=== PATIENT | female | born 1945 | race Caucasian/White ===

== ENCOUNTER 2023-01-09 19:28 | Emergency (ER) | payer MEDICARE, SELFPAY ==
[2023-01-09 19:31] VITALS: BP 199/75; PULSE 71; RESP 18; TEMP 36.6; O2SAT 95; BMI 32.4
--- NOTE | 2023-01-09 20:00 | PC.NURSE ---
pt's daughter states pt has a hx of UTIs and is having the same symptoms, of fatigue and confusion pt is incontinent
--- NOTE | 2023-01-09 20:08 | ED.FEMALEGU ---
HPI - Female Genitourinary General Chief complaint: Urogenital-Female Stated complaint: UTI Time Seen by Provider: 01/09/23 19:56 Source: patient and family Mode of arrival: Wheelchair History of Present Illness HPI Narrative: 77-year-old female nonsmoker with history of hypertension (has not had her medications yet tonight presents with daughter and a chief complaint of concern for UTI. She is had some minimal confusion that is not necessarily different than her baseline and primary complaint is of urinary frequency and urgency. She denies any abdominal pain or back pain she has no fever or chills. She is otherwise well and free of complaint. There is no chest pain, shortness of breath or cough. She has no nausea, vomiting or diarrhea. Related Data Previous Rx's Medication Instructions Recorded cephalexin 500 mg capsule 500 mg PO Q6H 7 days #28 caps 01/09/23 Allergies Allergy/AdvReac Type Severity Reaction Status Date / Time Iodinated Contrast Media Allergy Hives Verified 01/09/23 19:40 latex Allergy Verified 01/09/23 19:39 pseudoephedrine Allergy Rash Verified 01/09/23 19:40 [From [facility]] Review of Systems Review of Systems Narrative: GENERAL: Denies chills, fatigue, malaise, fever, sweats. HEENT: Denies sinus pain, ear pain, sore throat, difficulty swallowing, dizziness. RESPIRATORY: Denies dyspnea, cough, wheezing, hemoptysis, sputum. CARDIOVASCULAR: Denies chest pain, palpitations, orthopnea, edema, GASTROINTESTINAL: Denies nausea, vomiting, abdominal pain, diarrhea, constipation, melena. : See HPI MUSCULOSKELETAL: denies weakness, joint pain, or bony pain SKIN: Denies rash, skin lesions, or other NEUROLOGIC: Denies weakness, headache, numbness, change in speech, confusion, seizures, incoordination. PSYCHIATRIC: No concerning psychosocial issues. 12 point review of systems is negative except for those stated above Patient History Medical History Compression fracture Diabetes Gout High blood pressure High cholesterol UTI (urinary tract infection) Substance Use Type: does not use Exam Narrative Exam Narrative: GEN: AOx3 and in mild distress, pleasantly confused, at baseline per daughter who is at the bedside EYES: Pupils are equal, round, and reactive to light and accommodation. Extraoccular muscles are intact bilaterally. There is no subconjunctival hemorrhage or exudate. CHEST: Lungs are clear to auscultation bilaterally and free of wheezes, rales, or rhonchi. Heart rate is regular rhythm, there are no murmurs, clicks, rubs, or gallops. There is no chest wall tenderness. ABD: Abdomen is soft and nontender. There is no guarding or rebound. Bowel sounds are normal in all 4 quadrants. There is no mass or organomegaly. EXT: Full painless ROM of all extremities with no loss of sensation or strength. SKIN: Warm, pink, and dry. No erythema or rash Initial Vital Signs Initial Vital Signs: Vital Signs Temperature 97.8 F 01/09/23 19:31 Pulse Rate 71 01/09/23 19:31 Respiratory Rate 18 01/09/23 19:31 Blood Pressure 199/75 H 01/09/23 19:31 Pulse Oximetry 95 01/09/23 19:31 Oxygen Delivery Method Room Air 01/09/23 19:31 Course Orders Ordered: Discontinued Medications Cefazolin Sodium (Cephalexin 250 Mg Cap Prepack) 1 bottle MISC SEEINSTR ONE Stop: 01/09/23 20:46 Last Admin: 01/09/23 20:51 Dose: 2 cap Documented By: HNG Vital Signs Vital signs: Vital Signs - 8 hr 01/09/23 19:31 Temperature 97.8 F Pulse Rate 71 Respiratory Rate 18 Blood Pressure 199/75 H Pulse Oximetry 95 Oxygen Delivery Method Room Air MDM - Female Genitourinary Lab Data Labs: Urine Dip Bedside Urine Glucose Negative Bedside Urine Bilirubin - Negative Bedside Urine Ketone - Negative Urine Specific [place] 1.015 Bedside Urine Occult Blood +++ Bedside Urine pH 6.0 Bedside Urine Protein +/- 15 Bedside Urine Urobilinogen - Negative Bedside Urine Nitrite - Negative Bedside Urine Leukocytes + 70 Esterase MDM Narrative Medical decision making narrative: [77] year old patient presents with urinary complaints Multiple etiologies for patient's symptoms considered including, but not limited to: [UTI versus pyelonephritis versus other] No prior charts available in our EMR Primary Historian: patient and her daughter Labs reviewed and interpreted by myself: Urine consistent with UTI Patient's symptoms improved over duration of stay with above-stated therapies. Findings and discharge diagnosis discussed with patient/family followed by verbalization of understanding Return precautions discussed with patient/family whom verbalize understanding of diagnosis and plan Discharge Plan Departure Patient Disposition: Home Clinical Impression: Urinary tract infection Instructions: DI for Urinary Tract Infection (UTI) Activity Restrictions/Additional Instructions: *You have been diagnosed with [urinary tract infection] *What to do: *Please continue to take your regular medications as directed. [x ] New medication prescriptions sent to your pharmacy: [ [facility]] [ ] New medication written as a paper prescription [ ] No new medications given *Please follow up with your primary care provider in 2-3 days, call for an appointment. Let them know you were seen in the Emergency Department and that we ask that you be seen in follow up. We will electronically transmit a record of today's note if your PCP is in our system *Return to Emergency Department if you should have any new, worsening or concerning symptoms, such as [fever greater than 101 F, shaking chills, worsening pain, persistent vomiting or other bothersome symptoms] Prescriptions: New cephalexin 500 mg capsule 500 mg PO Q6H 7 Days Qty: 28 0RF Stand Alone Forms: Patient Portal/API
[2023-01-09] MEDS: cephALEXin 250 MG CAP PREPACK 1 BOTTLE MISC (20:51)
[2023-01-09 20:56] VITALS: BP 204/84; PULSE 67; RESP 16; O2SAT 97
== END 2023-01-09 21:03 | disposition home or self-care (01) ==
PROVIDERS: Emergency Provider Emergency Medicine
DX: N39.0 Urinary tract infection, site not specified (principal)
CPT/HCPCS: 81003; 99282

== ENCOUNTER 2023-01-13 18:48 | Observation (INO) | payer MEDICARE, SELFPAY ==
[2023-01-13 18:52] VITALS: BP 213/85; PULSE 63; RESP 19; TEMP 36.7; O2SAT 96; BMI 30.1
--- NOTE | 2023-01-13 19:00 | PC.NURSE ---
pt was dx with a UTI on 02/08 has been taking medication without improvement
[2023-01-13 19:55] LABS: Bacteria Urine Few (2-10); Culture Indicated Urine Specimen Cultured; RBC Urine None Seen (0-5/HPF); Squamous Epithelial Cell Urine 5-10 /HPF (0-5/HPF); WBC Urine 10-30/HPF (0-5/HPF)
--- NOTE | 2023-01-13 21:15 | ED.FEMALEGU ---
HPI - Female Genitourinary General Chief complaint: Urogenital-Female Stated complaint: was here for uti/not getting better Time Seen by Provider: 01/13/23 21:11 Source: patient and family Mode of arrival: Wheelchair History of Present Illness HPI Narrative: Patient is a 77-year-old female who has history of hypertension, hyperlipidemia, frequent UTIs on Mthenamine hippurate presenting today with UTI. She was actually seen evaluated here on the she had POC dip which was positive for leuks started on Keflex. She is been on Keflex for the last 4 days she has overall not had any improvement. Unfortunately urine culture and sensitivity was not sent due to insufficient urine. She is staying with a daughter who reports that she is extra tired fatigued. No real fever she is not having pain. She is get around by wheelchair. Related Data Home Medications Medication Instructions Recorded Confirmed allopurinol 100 mg tablet 100 mg PO DAILY 01/13/23 01/13/23 aspirin 81 mg capsule 81 mg PO DAILY 01/13/23 01/13/23 atorvastatin 40 mg tablet 40 mg PO DAILY 01/13/23 01/13/23 calcitonin (salmon) 200 1 spray intranasal (ALT) DAILY 01/13/23 01/13/23 unit/actuation nasal spray carvedilol 12.5 mg tablet 12.5 mg PO BID 01/13/23 01/13/23 escitalopram oxalate 5 mg tablet 2.5 mg PO DAILY 01/13/23 01/13/23 estradiol 0.01% (0.1 mg/gram) 1 appful vaginal 2XW 01/13/23 01/13/23 vaginal cream ferrous gluconate 324 mg (36 mg 324 mg PO 3XW 01/13/23 01/13/23 iron) tablet metformin 500 mg tablet,extended 500 mg PO BID 01/13/23 01/13/23 release 24 hr methenamine hippurate 1 gram tablet 1 g PO BID 01/13/23 01/13/23 tramadol 50 mg tablet 50 mg PO BEDTIME 01/13/23 01/13/23 valsartan 40 mg tablet 80 mg PO DAILY 01/13/23 01/13/23 Previous Rx's Medication Instructions Recorded cephalexin 500 mg capsule 500 mg PO Q6H 7 days #28 caps 01/09/23 Allergies Allergy/AdvReac Type Severity Reaction Status Date / Time Iodinated Contrast Media Allergy Hives Verified 01/13/23 18:52 latex Allergy Verified 01/13/23 18:52 pseudoephedrine Allergy Rash Verified 01/13/23 18:52 [From [facility]] Review of Systems Review of Systems ROS Unobtainable: All systems reviewed & are unremarkable except as noted in HPI and below Patient History Medical History (Updated 01/14/23 @ 02:57 by NANCY Shah-AMARILIS) Compression fracture Diabetes Gout High blood pressure High cholesterol Presence of internal carotid stent UTI (urinary tract infection) Surgical History (Updated 01/14/23 @ 02:57 by NANCY Shah-AMARILIS) History of left hip replacement History of repair of right rotator cuff Pacemaker Family History (Updated 01/14/23 @ 02:58 by NICHOLAS Shah) Other Adopted Substance Use Type: does not use Exam Initial Vital Signs Initial Vital Signs: Vital Signs Temperature 98.1 F 01/13/23 18:52 Pulse Rate 63 01/13/23 18:52 Respiratory Rate 19 01/13/23 18:52 Blood Pressure 213/85 H 01/13/23 18:52 Pulse Oximetry 96 01/13/23 18:52 Oxygen Delivery Method Room Air 01/13/23 18:52 GENERAL: Alert week pleasant 77-year-old female and in no acute distress. HEENT: Head atraumatic,EOMI, pupils reactive, face symmetric, moist mucous membranes CARDIOVASCULAR: Regular rate and rhythm without murmurs, rubs or gallops. RESPIRATORY: Breath sounds equal bilaterally, no wheezes rales or rhonchi. ABDOMEN: Soft, nontender. Normoactive bowel sounds all 4 quadrants. No guarding or rebound. : No CVA tenderness EXTREMITIES: Normal range of motion, no clubbing or edema. Neurovascularly intact NEUROLOGICAL: Alert and oriented x4.Normal gait and speech. SKIN: Warm, dry, no laceration, no petechiae, no rashes or lesions. Course Orders Ordered: ED Orders 01/13/23 19:23 Urine Culture Stat Urine Microscopic Stat 01/13/23 21:23 EKG-12 Lead Stat 01/13/23 21:47 CBC Auto Diff [Complete Blood Count AUTO DIFF] Stat CMP [Comprehensive Metabolic Panel] Stat Lactate (Lactic Acid) Stat Troponin & CK Cardiac Panel Stat 01/13/23 22:08 Blood Culture Stat 01/14/23 00:46 Education, smoking cessation ONGOING 01/14/23 00:55 Consult to Dietitian, Adult Routine Consult to Discharge Planning Routine Consult to Occupational Therapy Evaluate & Treat Consult to Physical Therapy Evaluate & Treat 01/14/23 05:00 Basic Metabolic Panel DAILY Complete Blood Count AUTO DIFF DAILY 01/15/23 05:00 Basic Metabolic Panel DAILY Complete Blood Count AUTO DIFF DAILY Acetaminophen (Acetaminophen 325 Mg Tablet) 650 mg PO Q6H PRN PRN Reason: Fever/Mild Pain (1-3) Last Admin: 01/14/23 02:41 Dose: 650 mg Documented By: KARYN Al Hydrox/Mg Hydrox/Simethicone (Mag Hydrox/Alum/Simeth 30 Ml Udc) 30 ml PO Q6HR PRN PRN Reason: Dyspepsia Allopurinol (Allopurinol 100 Mg Tablet) 100 mg PO DAILY [facility] Aspirin (Aspirin Ec 81 Mg Tablet) 81 mg PO DAILY [facility] Atorvastatin Calcium (Atorvastatin 20 Mg Tablet) 40 mg PO DAILY [facility] Calcium Carbonate (Calcium Carbonate 500 Mg Tab) 1,000 mg PO Q4HR PRN PRN Reason: Dyspepsia Carvedilol (Carvedilol 12.5 Mg Tablet) 12.5 mg PO BID [facility] Dextrose (Dextrose 50 % In Water 25 Gm/50 Ml Syringe) 25 gm IV PRN PRN PRN Reason: Hypoglycemia Enoxaparin Sodium (Enoxaparin 40 Mg/0.4 Ml Syringe) 40 mg SUBCUT DAILY [facility] Escitalopram Oxalate (Escitalopram 10 Mg Tablet) 2.5 mg PO DAILY [facility] Sodium Chloride (Normal Saline 0.9%) 1,000 mls @ 60 mls/hr IV CONT [facility] Last Admin: 01/14/23 02:34 Dose: 60 mls/hr Documented By: KARYN Ceftriaxone Sodium 1,000 mg/ (Sodium Chloride) 100 mls @ 200 mls/hr IV Q24H [facility] Insulin Human Lispro (Insulin Lispro 100 Unit/Ml 3ml Vial) 0 unit SUBCUT ACHS VERONICA; Protocol Naloxone HCl (Naloxone 0.4 Mg/Ml Vial) 0.2 mg IV Q2MIN PRN PRN Reason: Opiate Reversal Ondansetron HCl (Ondansetron 4 Mg Odt) 4 mg PO Q8HR PRN PRN Reason: Nausea And Vomiting Sennosides (Sennosides 8.6 Mg Tablet) 17.2 mg PO BEDTIME VERONICA Tramadol HCl (Tramadol 50 Mg Tablet) 50 mg PO BEDTIME [facility] Valsartan (Valsartan 80 Mg Tablet) 80 mg PO DAILY [facility] Discontinued Medications Sodium Chloride (Normal Saline 0.9%) 1,000 mls @ 1,000 mls/hr IV BOLUS ONE Stop: 01/13/23 22:22 Last Infusion: 01/13/23 23:27 Dose: 0 mls/hr Documented By: Admin: 01/13/23 21:59 Dose: 1,000 mls/hr Documented By: KRISTEN Ceftriaxone Sodium 1,000 mg/ (Sodium Chloride) 100 mls @ 200 mls/hr IV NOW ONE Stop: 01/13/23 21:24 Last Infusion: 01/13/23 23:27 Dose: 0 mls/hr Documented By: Admin: 01/13/23 21:59 Dose: 200 mls/hr Documented By: KRISTEN Ceftriaxone Sodium 1,000 mg/ (Sodium Chloride) 100 mls @ 200 mls/hr IV NOW ONE Stop: 01/14/23 00:53 Last Admin: 01/14/23 02:34 Dose: 200 mls/hr Documented By: KARYN Non-Formulary Medication (Aspirin) 81 mg PO DAILY [facility] Vital Signs Vital signs: Vital Signs - 8 hr 01/13/23 21:38 01/13/23 21:38 01/13/23 22:00 Pulse Rate 69 70 Blood Pressure 198/77 H Pulse Oximetry 92 95 01/13/23 22:30 01/13/23 23:00 01/13/23 23:30 Pulse Rate 67 71 70 Blood Pressure Pulse Oximetry 94 94 93 MDM - Female Genitourinary Lab Data 01/13/23 21:47 01/13/23 21:47 Labs: Lab Results 01/13/23 01/13/23 01/13/23 Range/Units 19:23 21:47 21:47 WBC 8.5 (4.5-11.0) X10^3/uL RBC 3.35 L (4.0-5.2) X10^6/uL Hgb 9.9 L (12.0-16.0) g/dL Hct 29.9 L (36-46) % MCV 89.3 (80-100) fL MCH 29.7 (26-34) PG MCHC 33.2 (30-36) % RDW 14.8 (11.6-14.8) % Plt Count 171 (150-400) X10^3/uL Neut % (Auto) 66.1 (50-75) % Lymph % (Auto) 18.7 L (25-40) % [place] % (Auto) 8.9 (3-14) % Eos % (Auto) 5.1 H (2-4) % Baso % (Auto) 1.2 (0-2) % Neut # (Auto) 5600 (7184-2303) /uL Lymph # (Auto) 1600 (1640-8257) /uL [place] # (Auto) 800 (0-900) /uL Eos # (Auto) 400 (0-450) /uL Baso # (Auto) 100 (0-100) /uL Sodium 136 L (137-145) mmol/L Potassium 4.8 (3.4-5.1) mmol/L Chloride 106 (98-107) mmol/L Carbon Dioxide 25 (22-32) mmol/L BUN 30 H (7-17) mg/dL Creatinine 1.00 (0.52-1.04) mg/dL Estimated GFR 57 L (>60) mL/min BUN/Creatinine Ratio 30.0 H (6-22) Glucose 115 H (80-110) mg/dL Lactate (0.7-2.1) mmol/L Calcium 8.8 (8.4-10.2) mg/dL Total Bilirubin 0.5 (0.2-1.3) mg/dL AST 25 (14-36) IU/L ALT 22 (<35) IU/L Alkaline Phosphatase 89 (38-126) U/L Total Creatine Kinase 28 L (30-135) U/L Troponin I < 0.012 (0.01-0.034) ng/mL Total Protein 6.8 (6.3-8.2) g/dL Albumin 3.5 (3.5-5.0) g/dL Globulin 3.3 (1.7-4.1) g/dL Albumin/Globulin Ratio 1.1 (1.0-2.8) Urine RBC None seen (0-5/HPF) Urine WBC 10-30/hpf H (0-5/HPF) Ur Squamous Epith Cells 5-10 /hpf H (0-5/HPF) Urine Bacteria Few (2-10) H (None) Urine Yeast 1-5/hpf H (None) Ur Culture Indicated? Specimen cultured 01/13/23 Range/Units 21:47 WBC (4.5-11.0) X10^3/uL RBC (4.0-5.2) X10^6/uL Hgb (12.0-16.0) g/dL Hct (36-46) % MCV (80-100) fL MCH (26-34) PG MCHC (30-36) % RDW (11.6-14.8) % Plt Count (150-400) X10^3/uL Neut % (Auto) (50-75) % Lymph % (Auto) (25-40) % [place] % (Auto) (3-14) % Eos % (Auto) (2-4) % Baso % (Auto) (0-2) % Neut # (Auto) (5461-2929) /uL Lymph # (Auto) (7783-7944) /uL [place] # (Auto) (0-900) /uL Eos # (Auto) (0-450) /uL Baso # (Auto) (0-100) /uL Sodium (137-145) mmol/L Potassium (3.4-5.1) mmol/L Chloride (98-107) mmol/L Carbon Dioxide (22-32) mmol/L BUN (7-17) mg/dL Creatinine (0.52-1.04) mg/dL Estimated GFR (>60) mL/min BUN/Creatinine Ratio (6-22) Glucose (80-110) mg/dL Lactate 0.9 (0.7-2.1) mmol/L Calcium (8.4-10.2) mg/dL Total Bilirubin (0.2-1.3) mg/dL AST (14-36) IU/L ALT (<35) IU/L Alkaline Phosphatase (38-126) U/L Total Creatine Kinase (30-135) U/L Troponin I (0.01-0.034) ng/mL Total Protein (6.3-8.2) g/dL Albumin (3.5-5.0) g/dL Globulin (1.7-4.1) g/dL Albumin/Globulin Ratio (1.0-2.8) Urine RBC (0-5/HPF) Urine WBC (0-5/HPF) Ur Squamous Epith Cells (0-5/HPF) Urine Bacteria (None) Urine Yeast (None) Ur Culture Indicated? Urine Dip Bedside Urine Glucose Negative Bedside Urine Bilirubin - Negative Bedside Urine Ketone - Negative Urine Specific [place] 1.020 Bedside Urine Occult Blood - Negative Bedside Urine pH 6.0 Bedside Urine Protein +/- 15 Bedside Urine Urobilinogen - Negative Bedside Urine Nitrite - Negative Bedside Urine Leukocytes ++ 125 Esterase ECG Data Interpretation: Sinus rhythm rate 69 ND interval day to QRS 154 QTC 490 paced rhythm no Sgarbossa criteria MDM Narrative Medical decision making narrative: Patient is 77-year-old female with frequent UTIs unknown sensitivity but I suspect she has drug resistance. She is frequently seen at [facility] in [place]. Has failed outpatient treatment on Keflex. Unfortunately culture and sensitivity was not done few days ago. She is not septic at this time. She continues to be weak. She is given 1 dose of Rocephin in the ED. She is afebrile without leukocytosis elevated lactate or procalcitonin Gabriella accepts patient [place] records have been requested Discharge Plan Departure Patient Disposition: Admitted As Inpatient Clinical Impression: Urinary tract infection Admit Date/Time: 01/14/23 01:24 Admit Provider: Gabriella Gonzalez
[2023-01-13 21:38] VITALS: BP 198/77; PULSE 69; O2SAT 92
[2023-01-13] MEDS: SODIUM CHLORIDE 0.9% 1,000 ML 1000 ML IV (21:59)
[2023-01-13] MEDS: cefTRIAXone 1,000 MG in SODIUM CHLORIDE 0.9% 100 ML 200 MG IV (21:59)
[2023-01-13 22:00] VITALS: PULSE 70; O2SAT 95
[2023-01-13 22:01] LABS: Add Manual Diff / Slide Review NO; Basophils Absolute Auto 100 /uL (0-100); Basophils Percent Auto 1.2 % (0-2); Eosinophils Absolute Auto 400 /uL (0-450); Eosinophils Percent Auto 5.1 % (2-4); Hematocrit 29.9 % (36-46); Hemoglobin 9.9 g/dL (12.0-16.0); Lymphocytes Absolute Auto 1600 /uL (1100-4500); Lymphocytes Percent Auto 18.7 % (25-40); Mean Corpuscular HGB Conc 33.2 % (30-36); Mean Corpuscular Hemoglobin 29.7 PG (26-34); Mean Corpuscular Volume 89.3 fL (80-100); Monocytes Absolute Auto 800 /uL (0-900); Monocytes Percent Auto 8.9 % (3-14); Neutrophils Absolute Auto 5600 /uL (1500-7000); Neutrophils Percent Auto 66.1 % (50-75); Platelet Count 171 X10^3/uL (150-400); Red Blood Cell Count 3.35 X10^6/uL (4.0-5.2); Red Cell Distribution Width 14.8 % (11.6-14.8); White Blood Cell Count 8.5 X10^3/uL (4.5-11.0)
[2023-01-13 22:15] LABS: Alanine Aminotransferase 22 IU/L (<35); Albumin 3.5 g/dL (3.5-5.0); Albumin Globulin Ratio 1.1 (1.0-2.8); Alkaline Phosphatase 89 U/L (38-126); Aspartate Aminotransferase 25 IU/L (14-36); Bilirubin Total 0.5 mg/dL (0.2-1.3); Blood Urea Nitrogen 30 mg/dL (7-17); Calcium 8.8 mg/dL (8.4-10.2); Carbon Dioxide 25 mmol/L (22-32); Chloride 106 mmol/L (98-107); Creatine Kinase 28 U/L (30-135); Estimated Glomerular Filt Rate 57 mL/min (>60); Globulin 3.3 g/dL (1.7-4.1); Glucose 115 mg/dL (80-110); HEMOLYSIS < 15 (0-50); Potassium 4.8 mmol/L (3.4-5.1); Sodium 136 mmol/L (137-145); Total Protein 6.8 g/dL (6.3-8.2)
[2023-01-13 22:26] LABS: Troponin I < 0.012 ng/mL (0.01-0.034)
[2023-01-13 22:30] VITALS: PULSE 67; O2SAT 94
[2023-01-13 22:38] LABS: Lactate (Lactic Acid) 0.9 mmol/L (0.7-2.1)
[2023-01-13 23:00] VITALS: PULSE 71; O2SAT 94
[2023-01-13 23:30] VITALS: PULSE 70; O2SAT 93
--- NOTE | 2023-01-14 01:00 | P.HP_ITS ---
History of Present Illness History of Present Illness Date Patient Seen: 01/14/23 Time Patient Seen: 01:00 Chief complaint: was here for uti/not getting better Narrative: Yakov Stephenson is a 77-year-old female who has history of hypertension,pacemaker, hyperlipidemia, gout, NIDDM, renal carcinoma, frequent UTIs on Mthenamine hippurate presenting today with UTI.? Patient's daughter reports that approximately 1 month ago patient had a UTI was put on Keflex followed by a dose of fosfomycin, completed those antibiotics approximately 1 week ago. She is staying with her other daughter here in [place] was seen here in ED on 01/09 she had POC dip which was positive for leuks started on Keflex.? She has been on Keflex for the last 4 days, worsening s/s increased fatigue, sleeping 10 hours or more a day, increasing balance & coordination problems, and slight altered mental status (perdaughter) high-risk for falls, failed outpatient management. Unfortunately urine culture and sensitivity was not sent due to insufficient urine. Patient lives in [facility], PCP Dr. Evelio Allen in [place]. patient had a significant fall 3 months ago resu lting in a L5-S1 compression fractures, fell while going to the restroom within the last week suffered bruising to left yarsanism. Patient is at increasing risk for severe life-threatening injury.?She is get around by wheelchair.? Patient presented to ED with hypertensive urgency 213/85. Was given 1 L of fluid with 1 g of Rocephin in ED. On admit patient complains of a productive cough related to seasonal allergies, frequent urinary incontinence possible retention, urgency and frequency. Patie nt also notes that she was recently diagnosed with Right renal carcinoma- Oncology Dr. Amada Allen, they have not started treatment yet. Denies chest pain, shortness in breath, headache, changes in vision, difficulty swallowing, speech impairment, numbness, tingling, recent falls, head injury, LOC, fever, body aches, chills, cough, recent exposure to illness, abdominal pain, nausea, vomiting, hematuria, bowel changes, constipation, incontinence, melena, rashes, recent changes to medication, illness, injury, or trauma. The time of admit 98.1? afebrile, 198/77, 70, 19, 93%, on room air. Have no previous comparison labs available. H&H 04/11, BUN 30, GFR 57, creatinine is normal. Lactate normal. Urine culture pending. Patient admitted for complicated UTI after failing outpatient management and frequent falls. [facility] Medical History (Updated 01/14/23 @ 02:57 by NANCY Shah-AMARILIS) Compression fracture Diabetes Gout High blood pressure High cholesterol Presence of internal carotid stent UTI (urinary tract infection) Surgical History (Updated 01/14/23 @ 02:57 by NANCY Shah-AMARILIS) History of left hip replacement History of repair of right rotator cuff Pacemaker Family History (Updated 01/14/23 @ 02:58 by NICHOLAS Shah) Other Adopted Social History (Updated 01/14/23 @ 02:59 by NICHOLAS Shah) details: lives with daughter who is a doctor in [facility] household members: children lives independently: No caregiver/support person: Yes Smoking Status: Never smoker alcohol intake: never substance use type: does not use Meds Home Medications and Allergies Home Medications Medication Instructions Recorded Confirmed Type cephalexin 500 mg capsule 500 mg PO Q6H 7 days #28 caps 01/09/23 Rx allopurinol 100 mg tablet 100 mg PO DAILY 01/13/23 01/13/23 History aspirin 81 mg capsule 81 mg PO DAILY 01/13/23 01/13/23 History atorvastatin 40 mg tablet 40 mg PO DAILY 01/13/23 01/13/23 History calcitonin (salmon) 200 1 spray intranasal (ALT) DAILY 01/13/23 01/13/23 History unit/actuation nasal spray carvedilol 12.5 mg tablet 12.5 mg PO BID 01/13/23 01/13/23 History escitalopram oxalate 5 mg tablet 2.5 mg PO DAILY 01/13/23 01/13/23 History estradiol 0.01% (0.1 mg/gram) 1 appful vaginal 2XW 01/13/23 01/13/23 History vaginal cream ferrous gluconate 324 mg (36 mg 324 mg PO 3XW 01/13/23 01/13/23 History iron) tablet metformin 500 mg tablet,extended 500 mg PO BID 01/13/23 01/13/23 History release 24 hr methenamine hippurate 1 gram tablet 1 g PO BID 01/13/23 01/13/23 History tramadol 50 mg tablet 50 mg PO BEDTIME 01/13/23 01/13/23 History valsartan 40 mg tablet 80 mg PO DAILY 01/13/23 01/13/23 History Allergies Allergy/AdvReac Type Severity Reaction Status Date / Time Iodinated Contrast Media Allergy Hives Verified 01/13/23 18:52 latex Allergy Verified 01/13/23 18:52 pseudoephedrine Allergy Rash Verified 01/13/23 18:52 [From [facility]] Review of Systems Review of Systems Narrative: All 12 point systems reviewed with the patient and are negative except otherwise documented. Exam Vital Signs (past 8 hours): - 01/13/23 18:52 01/13/23 21:38 01/13/23 21:38 Temperature 98.1 F Pulse Rate 63 69 Respiratory Rate 19 Blood Pressure 213/85 H 198/77 H Pulse Oximetry 96 92 Oxygen Delivery Method Room Air 01/13/23 22:00 01/13/23 22:30 01/13/23 23:00 Temperature Pulse Rate 70 67 71 Respiratory Rate Blood Pressure Pulse Oximetry 95 94 94 Oxygen Delivery Method 01/13/23 23:30 Temperature Pulse Rate 70 Respiratory Rate Blood Pressure Pulse Oximetry 93 Oxygen Delivery Method Oxygen Delivery Method Room Air Narrative Exam Narrative: General: Patient is a very delightful pleasant elderly female well-developed, well-nourished in no distress at this time. HEENT: Normocephalic, noted healing bruise to left temporal, extraocular muscles intact, oral pharynx is clear and mucous membranes are moist. Neck is supple and symmetric, trachea is midline, no adenopathy, no thyroid enlargement, nontender, no masses palpated. Negative for JVD Chest: Left wall pacemaker in place, Equal chest rise without nasal flaring, retractions, tachypneic or labored breathing. Lungs: Auscultation of all lung edmonds are clear, slightly tight, without adventitious sounds, wheezes, rhonchi, or rales. Cardio: paced regular rate and rhythm without murmur, rubs, or gallops, no carotid bruit, no cardiac pulsations present. Abdomen: Soft nontender, distended, negative for organomegaly, or masses. Bowel sounds are present in all 4 quadrants without guarding or rebound, no CVA tenderness. Musculoskeletal: Muscle strength and tone are equal, no deformity, crepitus, effusions, cyanosis, clubbing present. Noted lower left leg mild nonpitting edema daughter reports this is chronic, Full range of motion intact radial and pedal pulses are normal. Skin: Warm dry and intact without rashes, ulcerations or petechiae. Neuro: Alert and orientated x3, memory issues in regards to recall/history, moves all extremities, sensation to touch intact, no gross deficits noted of cranial nerves. Psych: Patient has a well-kept appearance, appropriate affect, mental status attitude thought context and judgment are appropriate for age. Objective Labs 01/13/23 21:47 01/13/23 21:47 Labs: Laboratory Results - last 24 hr 01/13/23 01/13/23 01/13/23 19:23 21:47 21:47 WBC 8.5 RBC 3.35 L Hgb 9.9 L Hct 29.9 L MCV 89.3 MCH 29.7 MCHC 33.2 RDW 14.8 Plt Count 171 Neut % (Auto) 66.1 Lymph % (Auto) 18.7 L [place] % (Auto) 8.9 Eos % (Auto) 5.1 H Baso % (Auto) 1.2 Neut # (Auto) 5600 Lymph # (Auto) 1600 [place] # (Auto) 800 Eos # (Auto) 400 Baso # (Auto) 100 Sodium 136 L Potassium 4.8 Chloride 106 Carbon Dioxide 25 BUN 30 H Creatinine 1.00 Estimated GFR 57 L BUN/Creatinine Ratio 30.0 H Glucose 115 H Lactate Calcium 8.8 Total Bilirubin 0.5 AST 25 ALT 22 Alkaline Phosphatase 89 Total Creatine Kinase 28 L Troponin I < 0.012 Total Protein 6.8 Albumin 3.5 Globulin 3.3 Albumin/Globulin Ratio 1.1 Urine RBC None seen Urine WBC 10-30/hpf H Ur Squamous Epith Cells 5-10 /hpf H Urine Bacteria Few (2-10) H Urine Yeast 1-5/hpf H Ur Culture Indicated? Specimen cultured 01/13/23 21:47 WBC RBC Hgb Hct MCV MCH MCHC RDW Plt Count Neut % (Auto) Lymph % (Auto) [place] % (Auto) Eos % (Auto) Baso % (Auto) Neut # (Auto) Lymph # (Auto) [place] # (Auto) Eos # (Auto) Baso # (Auto) Sodium Potassium Chloride Carbon Dioxide BUN Creatinine Estimated GFR BUN/Creatinine Ratio Glucose Lactate 0.9 Calcium Total Bilirubin AST ALT Alkaline Phosphatase Total Creatine Kinase Troponin I Total Protein Albumin Globulin Albumin/Globulin Ratio Urine RBC Urine WBC Ur Squamous Epith Cells Urine Bacteria Urine Yeast Ur Culture Indicated? Assessment & Plan Assessment & Plan narrative: Yakov Stephenson is a 77-year-old female who has history of hypertension, hyperlipidemia, gout, NIDDM, frequent Falls, frequent UTIs on Mthenamine hippurate admitted today with complicated UTI, after failing outpatient management and 2nd ED visit within 24hrs. ?Patient is also at very high risk of significant injury secondary to weakness and fatigued brought on by frequent complicated UTI UTI, complicated, in the setting of frequent UTIs, acute on chronic, present on admission * Patient has been on Keflex for 4 days without improvement, symptoms fatigue weakness and risk of falls is increasing. Second ED visit within 24 hours. * ED: Received 1 L/1 g Rocephin * Urine culture pending * Continue Rocephin 1 g * NS at 80 cc/HR * Bladder scan as needed, monitor for urinary retention * BUN 30, GFR 57-no labs for comparison Renal carcinoma, right, acute, present on admission * Recent diagnosis patient has not begun treatment * Managed by Dr. Ybarra [facility] Hypertensive urgency in the setting of hypertension, acute on chronic present on admission * ED: 213/85 * Admit: 198/77 * Continue carvedilol, valsartan Frequent falls, unstable gait, acute on chronic, present on admission * Patient had a significant fall 3 months ago resulting in L5/S1 compression fractures * A fall earlier this week resulting in bruising to left yarsanism * Patient currently getting around in a wheelchair * PT/OT consult ordered NIDDM with hyperlipidemia, chronic, present on admission * Patient admitted under diabetic protocol, BS check a.c. HS * Hold metformin, use low-dose sliding scale * Continue Lipitor Overweight, mild, acute on chronic, present on admission * As evidence by BMI 30 * dietary consult ordered regarding nutritional education and information for dietary, lifestyle, exercise, and weight changes. * the patient is at much higher risk for medical and surgical complications due to obesity as it relates to chronic illnesses:, and acute illness. The patient's obesity increases the difficulty and complexity of medical and/or surgical interventions, management and increases the chances of poor outcome such as morbidity and mortality as well as impaired wound healing. Insomnia, chronic, present on admission * Continue trazodone Code status:Full Surrogate decision maker: Arlene Workman daughter DVT/VTE prophylaxis: Lovenox and SCDs Disposition: Patient admitted for observation after failing outpatient management for complicated UTI and frequent UTIs, expected length of stay not to exceed 2 midnights. I have utilized all available immediate resources to obtain, update, or review the patient's current medications. I confirmed that the patient's advanced care plan is present, Code status is documented and/or surrogate decision maker is listed in the patient's medical record. I have personally reviewed patient's chart notes from PCP, specialists, diagnostic imaging, and laboratory results. Scores GCS [place] coma scale eye opening: Spontaneous [place] coma scale verbal response: Orientated (Slight confusion with history recall. ) [place] coma scale motor response: Obey commands [place] coma scale total score: 15
[2023-01-14 02:00] VITALS: BP 184/57; PULSE 65; RESP 19; TEMP 36.5; O2SAT 93
[2023-01-14 02:10] VITALS: BMI 30.1
[2023-01-14] MEDS: cefTRIAXone 1,000 MG in SODIUM CHLORIDE 0.9% 100 ML 200 MG IV (02:34)
[2023-01-14] MEDS: SODIUM CHLORIDE 0.9% 1,000 ML 60 ML IV (02:34)
[2023-01-14] MEDS: ACETAMINOPHEN 325 MG TABLET 650 MG PO (02:41)
[2023-01-14 04:00] VITALS: BP 155/52; PULSE 63; RESP 17; TEMP 36.2; O2SAT 93
[2023-01-14 04:53] LABS: Add Manual Diff / Slide Review NO; Basophils Absolute Auto 100 /uL (0-100); Basophils Percent Auto 1.5 % (0-2); Eosinophils Absolute Auto 400 /uL (0-450); Eosinophils Percent Auto 5.9 % (2-4); Hematocrit 27.1 % (36-46); Hemoglobin 9.1 g/dL (12.0-16.0); Lymphocytes Absolute Auto 1400 /uL (1100-4500); Lymphocytes Percent Auto 20.3 % (25-40); Mean Corpuscular HGB Conc 33.6 % (30-36); Mean Corpuscular Hemoglobin 29.8 PG (26-34); Mean Corpuscular Volume 88.6 fL (80-100); Monocytes Absolute Auto 700 /uL (0-900); Monocytes Percent Auto 9.3 % (3-14); Neutrophils Absolute Auto 4500 /uL (1500-7000); Platelet Count 155 X10^3/uL (150-400); Red Blood Cell Count 3.06 X10^6/uL (4.0-5.2); Red Cell Distribution Width 14.7 % (11.6-14.8); White Blood Cell Count 7.1 X10^3/uL (4.5-11.0)
[2023-01-14 05:02] LABS: BUN Creatinine Ratio 30.1 (6-22); Blood Urea Nitrogen 25 mg/dL (7-17); Calcium 8.2 mg/dL (8.4-10.2); Carbon Dioxide 23 mmol/L (22-32); Chloride 110 mmol/L (98-107); Estimated Glomerular Filt Rate > 60 mL/min (>60); Glucose 119 mg/dL (80-110); HEMOLYSIS < 15 (0-50); Sodium 136 mmol/L (137-145)
[2023-01-14 08:00] VITALS: BP 188/48; PULSE 62; RESP 17; TEMP 36.4; O2SAT 95
[2023-01-14] MEDS: ATORVASTATIN 20 MG TABLET 40 MG PO (08:50)
[2023-01-14] MEDS: ASPIRIN EC 81 MG TABLET PO (08:51)
[2023-01-14] MEDS: VALSARTAN 80 MG TABLET PO (08:51)
[2023-01-14] MEDS: allopurinoL 100 MG TABLET PO (08:51)
[2023-01-14 08:52] VITALS: BP 188/48; PULSE 62
[2023-01-14] MEDS: carvediloL 12.5 MG TABLET PO (08:52)
[2023-01-14] MEDS: ESCITALOPRAM 10 MG TABLET 2.5 MG PO (08:52)
[2023-01-14] MEDS: ENOXAPARIN 40 MG/0.4 ML SYRINGE SUBCUT (08:54)
[2023-01-14] MEDS: INSULIN LISPRO 100 UNIT/ML 3ML VIAL SUBCUT ×2 (08:56→12:18)
--- NOTE | 2023-01-14 10:16 | PC.NURSE ---
A&O follows commands. offers no overt c/o pain though moves slowly and steadily given back issues. Daughter attentive at bedside.
[2023-01-14 11:31] VITALS: BP 165/47; PULSE 64
--- NOTE | 2023-01-14 12:43 | CM.DANOTE ---
DCP Assessment: Patient is a 77yo Female here under treatment for a UTI. Patient has history of hypertension,pacemaker, hyperlipidemia, gout, NIDDM, renal carcinoma, frequent UTIs on Mthenamine hippurate presenting today with UTI.? Patient's daughter reports that approximately 1 month ago patient had a UTI was put on Keflex followed by a dose of fosfomycin, completed those antibiotics approximately 1 week ago (H&P). PCP: Dr. Fraser at [facility] Payer: [facility] and self pay [employer] reviewed EMR. Per record, patient had a significant fall 3 months ago resulting in a L5-S1 compression fractures (H&P). Per provider in rounds, patient likely has a chronic UTI. Per nursing staff, likely home with no additional needs from this team. [employer] entered room and introduced self and role. Patient was resting in bed and was able to orient x4 (name, time, location, circumstance) however, it was unclear throughout our interaction to this author if patient was completely cognitively following the conversation. Patient was accompanied by daughter and emergency contact, Arlene ([phone]). Patient normally lives with other daughter in [place], but that daughter is in [facility] on vacation. Patient is staying with Alphonso and JENI at this time. Primary information for this assessment comes from daughter Arlene. Patient has caregivers daily for half a day in the home from [facility]. Patient has used a wheel chair since her fall 3 months ago but is getting set up with OP PT in [place]. Patient has a shower seat, bed rails, raised toilet, and a walker/cane she used prior to her fracture. Patient relies on family for transportation at this time. Daughter reports no history of dementia at this time. [employer] provided daughter with [employer] booklet for more information for private caregivers. Patient reports she is not interested in a SNF at this time. Patient would rather have OP PT/OT care and be at home with family. Plan: likely to d/c home tomorrow/when medically stable with family and private care givers/follow up with OP PT/OT. Daughter working on establishing PT appointment. CM team will continue to follow closely. AAKASH Elliott Discharge Planning/Care Management CM Discharge Assessment Start: 01/14/23 12:38 Freq: Status: Active Protocol: Document 01/14/23 12:38 SL (Rec: 01/14/23 12:43 [id number]) Discharge Planning Assessment Assigned Trouble Dispatcher AAKASH Dunn DPOA/Assigned Designee Name Arlene (daughter) is emergency contact Contact Information [phone] Advance Directives? No History Provided By Patient,Family Member,Medical Record Prior Living Arrangements House Household Members children Comment Normally lives in [place] with one daughter. Currently staying in [place] with other daughter Type of transporation used prior to Relies on Others admit Comment daughter or son in law Independent with ADL's No Is patient alert and oriented? Yes Needs Assistance With Meal Prep,Home Chores / Shopping Comment patient is w/c bound at this time. DME Already Rented / Owned Bath Bench,Wheelchair,Elevated Toilet Seat,FWW / Walker,Cane Comment patient reported being uninterested in SNF or HH at this time. Barriers to Discharge No Discharge Plan Home Transportation Arrangement family in POV SNF/HH Preference patient prefers no SNF or HH at this time. patient prefers OP PT/OT Whiteboard Updated in Patient Room with Yes name and ext. # of Trouble Dispatcher Review Status In Process Next Review Type Continued Stay Review
[2023-01-14 13:00] VITALS: BP 180/54; PULSE 61; RESP 17; TEMP 36.5; O2SAT 95
--- NOTE | 2023-01-14 15:29 | P.DS_ITS ---
History of Present Illness History of Present Illness Date Patient Seen: 01/14/23 Time Patient Seen: 15:30 Chief complaint: was here for uti/not getting better Narrative: Per admitting provider, Yakov Stephenson is a 77-year-old female who has history of hypertension,pacemaker, hyperlipidemia, gout, NIDDM, renal carcinoma, frequent UTIs on Mthenamine hippurate presenting today with UTI.? Patient's daughter reports that approximately 1 month ago patient had a UTI was put on Keflex followed by a dose of fosfomycin, completed those antibiotics approximately 1 week ago. She is staying with her other [facility] was seen here in ED on 01/09 she had POC dip which was positive for leuks started on Keflex.? She has been on Keflex for the last 4 days, worsening s/s increased fatigue, sleeping 10 hours or more a day, increasing balance & coordination problems, and slight altered mental status (perdaughter) high-risk for falls, failed outpatient management. Unfortunately urine culture and sensitivity was not sent due to insufficient urine. Patient lives in [facility], PCP Dr. Evelio Allen in [place]. patient had a significant fall 3 months ago resulting in a L5-S1 compression fractures, fell while going to the restroom within the last week suffered bruising to left nondenominational. Patient is at increasing risk for severe life-threatening injury.?She is get around by wheelchair.? Patient presented to ED with hypertensive urgency 213/85. Was given 1 L of fluid with 1 g of Rocephin in ED. On admit patient complains of a productive cough related to seasonal allergies, frequent urinary incontinence possible retention, urgency and frequency. Patient also notes that she was recently diagnosed with Right renal carcinoma- Oncology Dr. Amada Allen, they have not started treatment yet. Denies chest pain, shortness in breath, headache, changes in vision, difficulty swallowing, speech impairment, numbness, tingling, recent falls, head injury, LOC, fever, body aches, chills, cough, recent exposure to illness, abdominal pain, nausea, vomiting, hematuria, bowel changes, constipation, incontinence, melena, rashes, recent changes to medication, illness, injury, or trauma. The time of admit 98.1? afebrile, 198/77, 70, 19, 93%, on room air. Have no previous comparison labs available. H&H 04/11, BUN 30, GFR 57, creatinine is normal. Lactate normal. Urine culture pending. Patient admitted for complicated UTI after failing outpatient management and frequent falls. Discharge Providers Provider Date of admission: 01/14/23 01:24 Discharge Date: 01/14/23 Primary care physician: Doctor Tennille MD Consults: 01/14/23 00:55 Consult to Dietitian, Adult Routine Comment: Reason For Exam: BMI 30 Consult to Discharge Planning Routine Comment: Consult to Occupational Therapy Evaluate & Treat Comment: Physician Instructions: Evaluate and treat Consult to Physical Therapy Evaluate & Treat Comment: Physician Instructions: Evaluate and Treat Discharge provider: Umair Bassett DO Summary Hospital Course Discharge Diagnosis: Chronic cystitis, present on admission. Acute UTI ruled out. Renal carcinoma, right, acute, present on admission Hypertensive urgency in the setting of hypertension, acute on chronic present on admission Frequent falls, unstable gait, acute on chronic, present on admission NIDDM with hyperlipidemia, chronic, present on admission Overweight, mild, acute on chronic, present on admission Insomnia, chronic, present on admission Hospital Course: Yakov Stephenson is a 77-year-old female who has history of hypertension, hyperlipidemia, gout, NIDDM, frequent Falls, frequent UTIs on Mthenamine hippurate admitted today with concern for possible complicated uti after urinalysis showed 10-30 WBC and a few bacteria but she also had contamination with 5-10 squamous cells. She was given ceftriaxone and light fluids initially. She felt a bit improved the following morning. She had no signs or symptoms of an acute stroke, and after being evaluated by physical therapy she was deemed to be at her baseline function. Patient's family had brought up concern about confusion and worsening cognition with a gradual decline over the past couple of months. At this time, with UA with squamous cells an no growth on cultures I do not believe there to be an infectious process leading to this cognitive impairment. She may have a chronic of chronic colonization or chronic cystitis but I do not believe this to be contributing. Her other chronic medical conditions appear stable. I recommend further follow up with primary care provider to address cognitive decline and possible chronic cystitis. She was a bit hypertensive, but BP were labile. Recommend PCP follow up for additional man agement of hypertension given no acute organ dysfunction. Changes to home medications are not recommended at this time. Time Spent with Patient Time spent: Greater than 30 minutes Exam Vital Signs (past 8 hours): - 01/14/23 08:00 01/14/23 08:52 01/14/23 11:31 Temperature 97.6 F Pulse Rate 62 62 64 Respiratory Rate 17 Blood Pressure 188/48 H 188/48 H 165/47 H Pulse Oximetry 95 Oxygen Flow Rate 0 01/14/23 13:00 Temperature 97.7 F Pulse Rate 61 Respiratory Rate 17 Blood Pressure 180/54 H Pulse Oximetry 95 Oxygen Flow Rate 0 Oxygen Delivery Method Room Air Oxygen Flow Rate 0 Narrative Exam Narrative: General: Patient is a very delightful pleasant elderly female well-developed, well-nourished in no distress at this time. Chest: Left wall pacemaker in place, Equal chest rise without nasal flaring, retractions, tachypneic or labored breathing. Lungs: Auscultation of all lung edmonds are clear, slightly tight, without adventitious sounds, wheezes, rhonchi, or rales. Cardio: paced regular rate and rhythm without murmur, rubs, or gallops Abdomen: Soft nontender, distended, negative for organomegaly, or masses. Musculoskeletal: Muscle strength and tone are equal, no deformity, crepitus, effusions, cyanosis, clubbing present. Skin: Warm dry and intact without rashes, ulcerations or petechiae. Neuro: Alert and orientated x3, memory issues in regards to recall/history, moves all extremities, sensation to touch intact, no gross deficits noted of cranial nerves. Psych: Patient has a well-kept appearance, appropriate affect, mental status attitude thought context and judgment are appropriate for age. Objective Labs 01/14/23 04:34 01/14/23 04:34 Labs: Laboratory Results - last 24 hr 01/13/23 01/13/23 01/13/23 19:23 21:47 21:47 WBC 8.5 RBC 3.35 L Hgb 9.9 L Hct 29.9 L MCV 89.3 MCH 29.7 MCHC 33.2 RDW 14.8 Plt Count 171 Neut % (Auto) 66.1 Lymph % (Auto) 18.7 L Monroe % (Auto) 8.9 Eos % (Auto) 5.1 H Baso % (Auto) 1.2 Neut # (Auto) 5600 Lymph # (Auto) 1600 Monroe # (Auto) 800 Eos # (Auto) 400 Baso # (Auto) 100 Sodium 136 L Potassium 4.8 Chloride 106 Carbon Dioxide 25 BUN 30 H Creatinine 1.00 Estimated GFR 57 L BUN/Creatinine Ratio 30.0 H Glucose 115 H Lactate Calcium 8.8 Total Bilirubin 0.5 AST 25 ALT 22 Alkaline Phosphatase 89 Total Creatine Kinase 28 L Troponin I < 0.012 Total Protein 6.8 Albumin 3.5 Globulin 3.3 Albumin/Globulin Ratio 1.1 Urine RBC None seen Urine WBC 10-30/hpf H Ur Squamous Epith Cells 5-10 /hpf H Urine Bacteria Few (2-10) H Urine Yeast 1-5/hpf H Ur Culture Indicated? Specimen cultured 01/13/23 01/14/23 01/14/23 21:47 04:34 04:34 WBC 7.1 RBC 3.06 L Hgb 9.1 L Hct 27.1 L MCV 88.6 MCH 29.8 MCHC 33.6 RDW 14.7 Plt Count 155 Neut % (Auto) 63.0 Lymph % (Auto) 20.3 L Monroe % (Auto) 9.3 Eos % (Auto) 5.9 H Baso % (Auto) 1.5 Neut # (Auto) 4500 Lymph # (Auto) 1400 Monroe # (Auto) 700 Eos # (Auto) 400 Baso # (Auto) 100 Sodium 136 L Potassium 4.0 Chloride 110 H Carbon Dioxide 23 BUN 25 H Creatinine 0.83 Estimated GFR > 60 BUN/Creatinine Ratio 30.1 H Glucose 119 H Lactate 0.9 Calcium 8.2 L Total Bilirubin AST ALT Alkaline Phosphatase Total Creatine Kinase Troponin I Total Protein Albumin Globulin Albumin/Globulin Ratio Urine RBC Urine WBC Ur Squamous Epith Cells Urine Bacteria Urine Yeast Ur Culture Indicated? [facility] Medical History (Updated 01/14/23 @ 05:24 by NICHOLAS Shah) Atrial flutter CKD stage G3a/A1, GFR 45-59 and albumin creatinine ratio <30 mg/g Complete AV block Compression fracture Diabetes Frequent falls Gout Heart failure High blood pressure High cholesterol History of ESBL E. coli infection History of [place] (myocardial infarction) Iron deficiency anemia Lung nodule Memory impairment Presence of internal carotid stent Proteus mirabilis infection Unstable gait UTI (urinary tract infection) Ventricular tachycardia Surgical History (Updated 01/14/23 @ 05:24 by NICHOLAS Shah) History of left hip replacement History of repair of right rotator cuff History of transcatheter aortic valve replacement (TAVR) Pacemaker Family History (Updated 01/14/23 @ 02:58 by NICHOLAS Shah) Other Adopted Social History (Updated 01/14/23 @ 02:59 [facility] details: lives with daughter who is a doctor in [employer] [facility] household members: children lives independently: No caregiver/support person: Yes Smoking Status: Never smoker alcohol intake: never substance use type: does not use Discharge Plan Discharge Plan Patient Disposition: Home Health Service Provider Discharge Comment: You were admitted to the hospital over concern for a possible UTI. Urine culture without growth, suspect a chronic cystitis. This may also be because her antibiotics had been working recently. You were seen by physical therapy and are at your baseline function. Please follow up with your primary care provider. Discharge orders & Medications Prescriptions: Continued atorvastatin 40 mg tablet 40 mg PO DAILY allopurinol 100 mg tablet 100 mg PO DAILY methenamine hippurate 1 gram tablet 1 g PO BID Patient Comments: take 1 tablet by mouth twice a day calcitonin (salmon) 200 unit/actuation spray,non-aerosol 1 spray intranasal (ALT) DAILY Patient Comments: instill 1 spray INTO ALTERNATING NOSTRILS ONCE DAILY metformin 500 mg tablet extended release 24 hr 500 mg PO BID valsartan 40 mg tablet 80 mg PO DAILY Patient Comments: take 1 tablet by mouth once daily escitalopram oxalate 5 mg tablet 2.5 mg PO DAILY carvedilol 12.5 mg tablet 12.5 mg PO BID Patient Comments: take 1 tablet by mouth twice a day with breakfast and with EVENING MEAL tramadol 50 mg tablet 50 mg PO BEDTIME Rx Instructions: takes for back pain estradiol 0.01 % (0.1 mg/gram) cream 1 appful VAGINAL 2XW Rx Instructions: Friday/ ferrous gluconate 324 mg (36 mg iron) Tablet 324 mg PO 3XW Rx Instructions: Fri/Fri/ aspirin 81 mg Capsule 81 mg PO DAILY Follow up/Referrals: Doctor Null MD [Primary Care Provider] - Diet/Activity/Treatments Diet: Diet as Tolerated and Regular Activity: As tolerated no restrictions Visit Report/Discharge Packet Instructions: DI for Urinary Tract Infection (UTI), How to Prevent Falls Stand Alone Forms: Patient Portal/API, Stroke Signs & Symptoms Discharge Data Primary Care Provider: Doctor Tennille
--- NOTE | 2023-01-14 15:32 | PC.NURSE ---
Received report from Jv VO at this time to assume care of patient. Patient is resting in bed comfortably, with her son in law sitting at bedside. Both deny needs at this time. Waiting for patient's daughter to return for discharge.
--- NOTE | 2023-01-14 15:40 | CM.DPNOTE ---
DCP Note According to GILDA Carias, family stating concern about patient going home. Patient currently staying with one daughter who lives in [place] while the daughter that patient lives with, her daughter in [place], is in [place] PT has seen patient and cleared her for return home w/family, patient walking w/walker Met then with patient and her son in law to review DCP. Explained that patient is being considered for discharge this evening because she has met medical criteria for DC. Son in law confirms that he watched patient moving with PT today and patient is at functional baseline Patient has had her established care with vicenta HERNANDEZ transferred here to [place] while staying with her family Son in law requests to speak w/hospitalist once his , patient's daughter, arrives. Family is concerned about patient's chronic UTIs and according to son in law I think we will take her down to [facility] to be seen Updated GILDA Carias, GILDA Barroso and Dr Bassett- Patient has passed PT and can be discharged home w/family. Patient is currently on service with [facility] HERNANDE[facility] for RN/PT/OT Son in law denies the need for contact with [facility] HERNANDEZ today, states patient may end up back home in [place] or admitted to [facility] (?) JW
--- NOTE | 2023-01-14 16:03 | PT.IIE ---
Addendum entered and electronically signed by Kassy More, PT 01/14/23 16:15: MD signature needed Original Note: Current Diagnoses Urinary tract infection, site not specified (01/14/23) Surgical History (Last Updated 01/14/23 @ 05:24 [facility] History of left hip replacement History of repair of right rotator cuff History of transcatheter aortic valve replacement (TAVR) Pacemaker Medical History (Last Updated 01/14/23 @ 05:24 by [facility] Atrial flutter CKD stage G3a/A1, GFR 45-59 and albumin creatinine ratio <30 mg/g Complete AV block Compression fracture Diabetes Frequent falls Gout Heart failure High blood pressure High cholesterol History of ESBL E. coli infection History of [place] (myocardial infarction) Iron deficiency anemia Lung nodule Memory impairment Presence of internal carotid stent Proteus mirabilis infection Unstable gait UTI (urinary tract infection) Ventricular tachycardia Physical Therapy Inpatient Evaluation/Re-Eval M1 PT/OT-IP Prior Functional Status Start: 01/14/23 15:11 Freq: NEEDED Status: Active Protocol: Document 01/14/23 15:13 AMB (Rec: 01/14/23 15:19 AMB [id number]) Medical Review Prior Functional Status Medical History Reviewed Yes Mobility and Gait uses manual w/c, needs assist for short distances with gait with walker Activities of Daily Living and IADL's 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 There are stairs in the home in [place] but none that the patient needs to manage. M2 PT-IP Current Condition Start: 01/14/23 15:11 Freq: NEEDED Status: Active Protocol: Document 01/14/23 15:13 AMB (Rec: 01/14/23 15:19 AMB [id number]) Physical Therapy Current Condition Current Condition Evaluation Date 01/14/23 Treatment Diagnosis UTI, frequent falls Onset Date 01/14/23 M3 PT-IP Subjective Start: 01/14/23 15:11 Freq: NEEDED Status: Active Protocol: Document 01/14/23 15:13 AMB (Rec: 01/14/23 15:19 AMB [id number]) Subjective Physical Therapy Visit Type Type Initial Evaluation Visit Start Time 13:30 Visit Stop Time 14:00 Total Visit Minutes 30 Notes Compression fractures from a fall a few months ago (avoid bend, lift, twist). Physical Therapy Visit Comments Patient Comments Son in law is present in the room, has his , pt's daughter on the phone they provide the majority of the history. Pt has had multiple falls in the last few months. Has had multiple UTIs. Baseline mobility is primarily using a manual w/c, getting help with showers, does transfer with assistance. M4 PT-IP Mobility and Gait Start: 01/14/23 15:11 Freq: NEEDED Status: Active Protocol: Document 01/14/23 15:13 AMB (Rec: 01/14/23 15:19 AMB [id number]) PT-Bed Mobility Assessment Rolling Type of Rolling Log Rolling Level of Assist Minimal Assistance Supine to Sit Supine to Sit Minimal Assistance,1 Person Assistance,Head of Bed Elevated,Bedrails Sit to Supine Sit to Supine Moderate Assistance,1 Person Assistance,Head of Bed Elevated,Bedrails Scooting Scooting Up and Down in Bed Dependent PT-Transfer Assessment Sit to and From Stand Sit to and from Stand Minimal Assistance,1 Person Assistance,Use of Upper Extremities Equipment Transfer Assistive Device Front Wheeled Walker Transfers Transfer Destination Bed Transfer Technique Stand Step Pivot Transfer Ability Level of Assist Minimal Assistance Comments Mobility Comments Yakov needed Katherine to move from supine to sitting on edge of bed. Did need more ModA to move back from sitting to supine (needed assist with both LE and trunk stability). Gait Assessment Gait Gait Assistance Required: Contact Guard Assist Distance (Feet) 20 Assistive Devices Assistive Device Gait Belt,Front Wheeled Walker Gait Deviations General Gait Pattern Decreased Stride Length, Decreased Feet Clearance,Step- to Gait Factors Limiting Gait Function Factors Limiting Gait Function Decreased Activity Tolerance, Decreased Sensation,Decreased Strength,Pain,Poor Balance Comments Gait Comments Yakov ambulates a short distance with FWW and CGA before becoming fatigued. PT-Balance Assessment Sitting Balance and Reactions Static Sitting Balance Ability Good Dynamic Sitting Balance Ability Fair Standing Balance and Reactions Static Standing Balance Ability Fair Dynamic Standing Balance Ability Poor M7 PT-IP Assessment and Plan Start: 01/14/23 15:11 Freq: NEEDED Status: Active Protocol: Document 01/14/23 15:13 AMB (Rec: 01/14/23 15:19 AMB [id number]) PT Summary Assessment and Plan Potential Rehabilitation Potential Good Status of Condition at Evaluation Stable Summary Impairments Pain,Strength,Balance, Cognition,Bed Mobility, Transfers,Gait,Activity Tolerance Assessment Summary Yakov was admitted due to UTI and frequent falls. ( Family states she has had a decline since and want her UTI to be cleared before returning home). Education provided that UTI may not clear quickly. If pt's family is unable to take care of her in current state (using manual w/c for longer distances, Katherine for most transfers, pt fatiguing quickly) then they could consider respite care or SNF if insurance allows. If family is able to take her home then we would want to help set up home health care. PT will follow patient while she is admitted. Goals Bed Mobility Goal Contact Guard Assistance Transfer Goal Contact Guard Assistance Gait Goal Contact Guard Assistance Gait Distance 50 Days to Meet Goals 5 Frequency of Treatment Frequency Of Treatment Once a Day Treatment Plan Physical Therapy Treatment Plan Bed Mobility Training,Transfer Training,Gait Training, Therapeutic Exercise Precautions Other Precautions Recent compresion fracture, avoid bending, twisting lifting Recommendations To Nursing Amount of Assist Needed 2 Person Assist Discharge Recommendations PT Discharge Recommendations Home Health,SNF Rehab Transportation Needs at Discharge Private Vehicle
--- NOTE | 2023-01-14 16:10 | PC.NURSE ---
Patient's daughter at bedside and another daughter over speaker phone spoke with Dr. Bassett at bedside over their concerns. Patient has discharge orders. Will continue to follow, for discharge.
== END 2023-01-14 16:50 | disposition home health service (06) ==
LOC: ED 21:11 → AC 01-14 01:42
PROVIDERS: Admitting Provider Nurse Practitioner Family; Emergency Provider Emergency Medicine; Referring Provider Emergency Medicine; Visit Provider Nurse Practitioner Family
DX: N30.20 Other chronic cystitis without hematuria (principal); I16.0 Hypertensive urgency; I10 Essential (primary) hypertension; Z95.0 Presence of cardiac pacemaker; C64.9 Malignant neoplasm of unspecified kidney, except renal pelvis; R32 Unspecified urinary incontinence; E11.69 Type 2 diabetes mellitus with other specified complication; E78.5 Hyperlipidemia, unspecified; E66.3 Overweight; Z68.30 Body mass index [BMI] 30.0-30.9, adult; G47.00 Insomnia, unspecified; Z91.81 History of falling; Z99.3 Dependence on wheelchair
CPT/HCPCS: 36415; 80048; 80053; 81003; 81015; 82550; 82962; 83605; 84484; 85025; 87040; 87086; 93005; 93010; 96365; 96366; 96372; 97161; 99284; G0378; J0696; J1650